=== PATIENT | male | born 1965 | race Caucasian/White ===

== ENCOUNTER 2024-03-30 14:35 | Outpatient (AMB) | payer MEDICARE, SELFPAY ==
--- NOTE | 2024-03-30 15:00 | A.OFFVIS_ITS ---
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 Has Hx of a vein stripping in the that has always had issues. Hx of [facility] wound Care center. 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 He has been seen by [facility] in the past, most recently, earlier this year. His last US was last winter, but he states it was a quick one. Complaints include pain over varicosities, swelling of lower extremities, and nonhealing ulcers. He is a very active person and it was not necessarily stop him from doing his normal physical activity. It is noted more so in left leg. Patient denies any previous venous surgery or injections. Patient denies any history of DVT/ PE. Patient denies any history of phlebitis. Trial of compression includes - elevation, especially at night in bed. Compression stockings; he is currently using 30-40 mmHg but has used 40-50mmHg in the past. They now present for vascular evaluation regarding their varicose veins. Review of Systems Const Reports as per HPI and Denies weakness ENT Reports Normal hearing present and Denies dizziness Card Reports as per HPI, Denies chest pain, Denies chest pain at rest, Denies chest pain with activity, Denies dyspnea and Denies dyspnea on exertion Resp Reports as per HPI, Denies cough, Denies dyspnea and Denies dyspnea on exertion GI Reports as per HPI, Denies abdominal pain, Denies nausea and Denies vomiting Musc Denies numbness Skin/Breast Reports as per HPI, Denies erythema and Denies wounds Neuro Reports Normal hearing present, Denies dizziness, Denies numbness, Denies Sensory deficit (Neuro) and Denies weakness Psych Reports no additional complaints Endo Reports no additional complaints Physical Exam Vital Signs: BMI result Body Mass Index 26.6 Const General: healthy appearing and no acute distress Orientation/consciousness: patient oriented x3 HEENT Head: Yes normal to inspection Ears: hearing grossly normal bilaterally Mouth: Normal oral and palatal mucosa present Resp Effort & Inspection: normal respiratory effort and able to speak in complete sentences Auscultation: clear to auscultation bilaterally Cardio Jugular venous distension: no JVD Rate: regular rate Rhythm: regular rhythm Heart sounds: S1 normal heart sound present and S2 normal heart sound present Bruits: no abdominal aortic bruits, no carotid bruits, no femoral bruits and no renal bruits Peripheral pulses: Peripheral pulses 2+ throughout GI Inspection: Yes normal to inspection Palpation (GI): No Abdominal aortic bruit present Skin General skin exam: no rashes or lesions noted Wounds: no wounds Hair: normal Neuro General: patient oriented x3 Cranial nerves: Yes Normal hearing present Cognition (Neuro): normal cognition Gait exam (Neuro): Normal gait present Motor exam (neuro): 5/5 motor strength present throughout Sensory Exam: No Sensory deficit (Neuro) Extrem Other: Left lower extremity: Discoloration noted with varying colors of deep red, violaceous, and hemosiderien staining from mid hernandez to the toes. Palpable DP pulses. Medial malleolus area - small ulceration noted, no bleeding, slight yellow/white weeping noted. Surrounding area very dry and sloughing skin. Right lower extremity: Discoloration noted, but not as significant his left lower extremity. More periods pale and light red discoloration. Palpable DP pulses. No wounds or ulcerations noted. CEAP: C - 6 E - primary A - superficial P - reflux General: Yes normal to inspection, Yes full ROM, Yes capillary refill normal and Yes normal gait Assessment & Plan Assessment & Plan (1) Varicose veins of both lower extremities with inflammation: Code(s): I83.11 - Varicose veins of right lower extremity with inflammation; I83.12 - Varicose veins of left lower extremity with inflammation Category: Medical Plan: Chuck is presenting today as a referral from his PCP for ongoing nonhealing venous ulcers as well as discoloration of his lower extremities. He is a very active person and is a nonsmoker. He wears compression stockings daily at a compression 30-40 mmHg but has gone up to 40-50 mmHg. He has been seen at [facility] vascular surgery as well as wound care and states he has not been getting any answers as to why this continues to happen. He states he has had an ultrasound before but does not think it has been a venous insufficiency one. He has been negative for DVTs in the past. In short, the patient has evidence of venous insufficiency. I have discussed the pathophysiology with the patient. In addition I have provided informational material regarding venous disease to the patient. We have discussed conservative measures including compression, elevation, and exercise. I have taken the liberty of ordering venous insufficiency testing with the patient. They will follow up with me after testing. The patient had an opportunity to ask questions regarding the treatment plan. All questions were answered. Imaging studies, laboratory studies and physical exam results were discussed and reviewed in detail. No major barriers to understanding were identified. The patient expressed understanding and agreement with the above treatment plan. The patient is aware they should contact our office by phone for worsening of the current condition or the appearance of new symptoms. Thank you for allowing me to participate in the vascular care of this patient. If you have any questions or concerns regarding the treatment for the above condition please do not hesitate to contact me. The office telephone contact is [phone]. This note is constructed using voice recognition software. While every effort has been made to ensure accuracy, railway yard assistant errors may have been included. Thank you for allowing me to participate in the care of your patient. Yours sincerely, GRAYSON Arteaga Orders: Orders US venous duplex LE BI 1 Week I83.11 - Varicose veins of right lower extremity with inflammation, I83.12 - Varicose veins of left lower extremity with inflammation Coding Level of Care Code New Pt Level 4 (09050) Diagnoses Varicose veins of both lower extremities with inflammation I83.11; I83.12
[2024-03-30 15:01] VITALS: BMI 26.6
== END 2024-03-30 15:43 | disposition home or self-care (01) ==
PROVIDERS: Visit Provider Physician Assistant Surgical
DX: I83.11 Varicose veins of right lower extremity with inflammation (principal); I83.12 Varicose veins of left lower extremity with inflammation
CPT/HCPCS: 99204

== ENCOUNTER → 2024-03-30 14:35 | Outpatient (BNVA) | payer MEDICARE, SELFPAY | PROVIDERS: Visit Provider Physician Assistant Surgical | DX: I83.11 Varicose veins of right lower extremity with inflammation (principal); I83.12 Varicose veins of left lower extremity with inflammation | CPT/HCPCS: 99202 ==

== ENCOUNTER 2024-05-06 08:13 | Outpatient (REF) | payer MEDICARE, SELFPAY ==
--- NOTE | ~2024-05-06 | US_ITS ---
EXAMINATION: US LOWER EXTREMITY VENOUS (REFLUX EXAM), BILATERAL CLINICAL INFORMATION: Varicose veins of right lower extremity with inflammation; history of prior vein stripping and VenoSeal procedures. COMPARISON: None. TECHNIQUE: Color flow triplex imaging and compression Doppler was performed to evaluate both the deep and the superficial systems bilaterally. To evaluate the superficial system, the examination was performed in the upright position. Color-flow Doppler ultrasound and compression ultrasound were utilized. In addition, maneuvers were utilized to demonstrate reflux. FINDINGS: 1. DEEP VENOUS ULTRASOUND OF THE RIGHT LOWER EXTREMITY: Common Femoral Vein: Compressible, normal respiratory variation and augmented flow. Femoral Vein: Compressible, normal color flow and augmentation. Popliteal Vein: Compressible, normal augmentation. Deep Reflux: There is hemodynamically significant reflux within the right femoral and popliteal veins segments. There is no evidence of a Tyler's cyst. 2. SUPERFICIAL ULTRASOUND WITH DOPPLER OF RIGHT LOWER EXTREMITY: GREAT SAPHENOUS VEIN: Saphenofemoral Junction: Not seen Proximal Thigh: Not seen Mid Thigh: Possibly thrombosed Distal Thigh: Not seen At Knee: Not seen Proximal Calf: Not seen Mid Calf: 0.1 cm; Reflux: 2188 ms Distal Calf: 0.2 cm; Reflux: 0 ms DUPLICATED MEDIAL GREAT SAPHENOUS VEIN: Diameter: None imaged Reflux: NA DUPLICATED LATERAL GREAT SAPHENOUS VEIN: Diameter: None imaged Reflux: NA SMALL SAPHENOUS VEIN: Saphenopopliteal Junction: 0.3 cm; Reflux: 0 ms Proximal: 0.2 cm; Reflux: 0 ms Distal: 0.2 cm; Reflux: 0 ms VEIN OF GIACOMINI: Size: NA Reflux: NA PERFORATORS: Location: Mid calf Size: 0.1 Reflux: 0 ms VARICOSITIES: Location: None imaged. Size: NA Reflux: NA 3. DEEP VENOUS ULTRASOUND OF THE LEFT LOWER EXTREMITY: Common Femoral Vein: Compressible, normal respiratory variation and augmented flow. Femoral Vein: Compressible, normal color flow and augmentation. Popliteal Vein: Compressible, normal augmentation. Deep Reflux: There is hemodynamically significant reflux within the left femoral and popliteal veins segments. There is no evidence of a Tyler's cyst. 4. SUPERFICIAL ULTRASOUND WITH DOPPLER OF LEFT LOWER EXTREMITY: GREAT SAPHENOUS VEIN: Saphenofemoral Junction: Not seen Proximal Thigh: Not seen Mid Thigh: Possibly thrombosed Distal Thigh: Not seen At Knee: Not seen Proximal Calf: 0.1 cm; noncompressible Mid Calf: 0.1 cm; partially compressible Distal Calf: Not seen DUPLICATED MEDIAL GREAT SAPHENOUS VEIN: Diameter: None imaged Reflux: NA DUPLICATED LATERAL GREAT SAPHENOUS VEIN: Diameter: None imaged. Reflux: NA SMALL SAPHENOUS VEIN: Saphenopopliteal Junction: 0.04 cm; Reflux: 0 ms Proximal: 0.1 cm; Reflux: 0 ms Distal: 0.2 cm; Reflux: 0 ms VEIN OF GIACOMINI: Size: NA Reflux: NA PERFORATORS: Location: Mid short saphenous vein Size: 0.3 cm Reflux: 0 ms Location: Distal short saphenous vein Size: 0.3 cm Reflux: 0 ms Location: Proximal calf Size: 0.1 cm Reflux: 0 ms VARICOSITIES: Location: None Imaged Size: NA Reflux: NA US/US venous duplex LE BI IMPRESSION: Right: There has been a prior right greater saphenous vein ablation. There is hemodynamically significant reflux of the residual right greater saphenous vein at the level of the mid calf. There is hemodynamically significant reflux within the right deep venous system, as detailed. Left: There has been a prior left greater saphenous vein ablation. No hemodynamically significant reflux is seen within the left lower extremity superficial venous system. There is hemodynamically significant reflux within the left deep venous system, as detailed. Electronically signed by: Dixon Lugo MD 06/09/2024 05:13 PM SATYA
== END 2024-05-06 08:14 | disposition home or self-care (01) ==
LOC: HO.US 08:13
PROVIDERS: PCP Internal Medicine; Visit Provider Physician Assistant Surgical
DX: I83.11 Varicose veins of right lower extremity with inflammation (principal); I83.12 Varicose veins of left lower extremity with inflammation
CPT/HCPCS: 93970

== ENCOUNTER 2024-05-18 14:05 | Outpatient (AMB) | payer MEDICARE, SELFPAY ==
--- NOTE | 2024-05-18 14:09 | MHC.OFFVIS ---
Vital Signs 05/18/24 14:10 Height 5 ft 9 in Weight 180 lb BMI 26.6 Intake Visit Reasons: Follow Up 05/06 US Intake Note: follow up US 05/06/24 for Left LE wound hes had since his 20s, hx of vein stripping in the 1980s. Accompanied by: Self / Same As Patient Allergies No Known Allergies Allergy (Verified 05/18/24 14:13) HPI HPI Follow Up 05/06 US: Details: Very pleasant 59-year-old gentleman presents for evaluation regarding nonhealing left lower extremity ulcer. This originally began back at the age of 16. He reports some sort of complex fracture of the lower extremity. From his mid 20s he has developed nonhealing ulcers on and off throughout his life. He has been seen by multiple wound care centers and actually has had multiple venous ablation and strippings done in the past. He has this nonhealing left medial ankle ulcer. Now presents to us for evaluation and treatment. Review of Systems Const All systems reviewed & are unremarkable except as noted in HPI and below Reports no additional complaints ENT Reports Normal hearing present Card Denies chest pain, Denies chest pain at rest, Denies chest pain with activity and Denies pedal edema Resp Denies cough GI Denies abdominal pain Musc Denies abnormal gait, Denies muscle cramps and Denies radiating pain into limb Skin/Breast Denies skin ulcer and Denies wounds Neuro Reports Normal hearing present and Denies abnormal gait Psych Reports no additional complaints Physical Exam Vital Signs: BMI result Body Mass Index 26.6 Const General: cooperative, healthy appearing and comfortable Orientation/consciousness: oriented to person, oriented to place and oriented to time HEENT Head: Yes normal to inspection Neck Neck: Yes normal visual inspection Carotids: no bruits Chest Chest palpation & inspection: normal inspection of the chest Resp Effort & Inspection: normal respiratory effort and able to speak in complete sentences Auscultation: clear to auscultation bilaterally, no crackles, no rales, no rhonchi and no wheezes Cardio Other: Bilateral palpable dorsalis pedis pulses Rate: regular rate Rhythm: regular rhythm Heart sounds: S1 normal heart sound present and S2 normal heart sound present Bruits: no carotid bruits Peripheral pulses: Peripheral pulses 2+ throughout GI Inspection: Yes normal to inspection Skin Other: Left medial ankle a proximally a 2 cm generalized opening and excoriated area. There is generalized skin discoloration. CEAP Class - C6 Wounds: no wounds Hair: normal Neuro General: oriented to person, oriented to place and oriented to time Cranial nerves: Yes CN's II-XII intact bilaterally and Yes Normal hearing present Cognition (Neuro): normal cognition Motor exam (neuro): 5/5 motor strength present throughout Extrem Other: venous exam: No significant superficial varicosities or spider telangiectasias, minimal edema General: No clubbing, No cyanosis and No edema Psych Appearance: grossly normal Mental Status: mental status grossly normal Speech and movement: Normal speech and movement present Assessment & Plan Assessment & Plan (1) Nonhealing ulcer of left lower extremity: Code(s): L97.929 - Non-pressure chronic ulcer of unspecified part of left lower leg with unspecified severity Category: Medical Qualifiers: Non-pressure ulcer stage: unspecified non-pressure ulcer stage Qualified Code(s): L97.929 - Non-pressure chronic ulcer of unspecified part of left lower leg with unspecified severity Plan: In short patient has a nonhealing left lower extremity ulcer. This has been chronic in nature and it is unfortunate that he has been unable to heal this. From a vascular perspective it appears that he has palpable arterial pulses and venous testing performed on May 06 is negative for any significant reflux. I have taken the liberty of ordering a CT scan of that left lower extremity to ensure that there is no foreign body or underlying hardware. We have discussed conservative wound care issues including compressive wraps and dressings. He will follow up with us after testing. Thank you for allowing us to participate in his care. (2) Varicose veins of both lower extremities with inflammation: Code(s): I83.11 - Varicose veins of right lower extremity with inflammation; I83.12 - Varicose veins of left lower extremity with inflammation Category: Medical Plan: Appears to have had prior venous ablation is and stripping. No additional venous reflux identified. Thank you for allowing us to assist in his care Orders: Orders CT lower leg LT wo IV con Today L97.929 - Non-pressure chronic ulcer of unspecified part of left lower leg with unspecified severity Coding Level of Care Code Est Pt Level 4 (85792) Complex EM visit Add On G2211 Diagnoses Non-healing ulcer of lower extremity, left, with unspecified severity L97.929 Non-pressure ulcer stage: unspecified non-pressure ulcer stage Varicose veins of both lower extremities with inflammation I83.11; I83.12
[2024-05-18 14:10] VITALS: BMI 26.6
== END 2024-05-18 14:43 | disposition home or self-care (01) ==
PROVIDERS: PCP Internal Medicine; Visit Provider Surgery Vascular Surgery
DX: L97.929 Non-pressure chronic ulcer of unspecified part of left lower leg with unspecified severity (principal); I83.11 Varicose veins of right lower extremity with inflammation; I83.12 Varicose veins of left lower extremity with inflammation
CPT/HCPCS: 99214; G2211

== ENCOUNTER → 2024-05-18 14:05 | Outpatient (BNVA) | payer MEDICARE, SELFPAY | PROVIDERS: PCP Internal Medicine; Visit Provider Surgery Vascular Surgery | DX: I83.228 Varicose veins of left lower extremity with both ulcer of other part of lower extremity and inflammation (principal); L97.829 Non-pressure chronic ulcer of other part of left lower leg with unspecified severity; I83.11 Varicose veins of right lower extremity with inflammation | CPT/HCPCS: 99212 ==

== ENCOUNTER 2024-06-21 11:06 | Outpatient (REF) | payer OTHER, SELFPAY | END 2024-06-21 11:07 | disposition home or self-care (01) | LOC: HO.CT 11:06 | PROVIDERS: PCP Internal Medicine; Visit Provider Surgery Vascular Surgery | DX: L97.929 Non-pressure chronic ulcer of unspecified part of left lower leg with unspecified severity (principal) | CPT/HCPCS: 73700 ==

== ENCOUNTER → 2024-06-21 11:08 | Outpatient (BNV) | payer OTHER, SELFPAY | PROVIDERS: PCP Internal Medicine; Visit Provider Radiology Diagnostic Radiology | DX: L97.929 Non-pressure chronic ulcer of unspecified part of left lower leg with unspecified severity (principal) | CPT/HCPCS: 73700 ==

== ENCOUNTER 2024-07-01 14:20 | Outpatient (AMB) | payer OTHER, SELFPAY ==
[2024-07-01 14:25] VITALS: BMI 26.6
--- NOTE | 2024-07-01 14:25 | MHC.OFFVIS ---
Vital Signs 07/01/24 14:25 Height 5 ft 9 in Weight 180 lb BMI 26.6 Intake Visit Reasons: follow up CT LE 06/21/23 Intake Note: follow up CT Left LE 06/21/24, for non-healing wound on the ankle. President & Founder Required: No Accompanied by: Self / Same As Patient Allergies No Known Allergies Allergy (Verified 07/01/24 14:29) HPI HPI follow up CT LE 06/21/23: Details: Chuck is presenting today as a follow up to CT scan of the left lower leg, performed on 06/21/2024. He has had any lengthy history, since his teenage years, after an accident that occurred: He states began having these ulcers that continually occur on his left lower ankle area. He has seen multiple specialties for this as well as wound care, but they continue to reemerge. He states currently the site has scabbed over and there was no openings, bleeding, or any drainage. Review of Systems Const Reports as per HPI and Denies weakness ENT Reports Normal hearing present and Denies dizziness Card Reports as per HPI, Denies chest pain, Denies chest pain at rest, Denies chest pain with activity, Denies dyspnea and Denies dyspnea on exertion Resp Reports as per HPI, Denies cough, Denies dyspnea and Denies dyspnea on exertion GI Reports as per HPI, Denies abdominal pain, Denies nausea and Denies vomiting Musc Denies numbness Skin/Breast Reports as per HPI, Denies erythema and Denies wounds Neuro Reports Normal hearing present, Denies dizziness, Denies numbness, Denies Sensory deficit (Neuro) and Denies weakness Psych Reports no additional complaints Endo Reports no additional complaints Physical Exam Vital Signs: BMI result Body Mass Index 26.6 Const General: healthy appearing and no acute distress Orientation/consciousness: patient oriented x3 HEENT Head: Yes normal to inspection Ears: hearing grossly normal bilaterally Mouth: Normal oral and palatal mucosa present Resp Effort & Inspection: normal respiratory effort and able to speak in complete sentences Auscultation: clear to auscultation bilaterally Cardio Jugular venous distension: no JVD Rate: regular rate Rhythm: regular rhythm Heart sounds: S1 normal heart sound present and S2 normal heart sound present Bruits: no abdominal aortic bruits, no carotid bruits, no femoral bruits and no renal bruits Peripheral pulses: Peripheral pulses 2+ throughout GI Inspection: Yes normal to inspection Palpation (GI): No Abdominal aortic bruit present Skin General skin exam: no rashes or lesions noted Wounds: no wounds Hair: normal Neuro General: patient oriented x3 Cranial nerves: Yes Normal hearing present Cognition (Neuro): normal cognition Gait exam (Neuro): Normal gait present Motor exam (neuro): 5/5 motor strength present throughout Sensory Exam: No Sensory deficit (Neuro) Extrem Other: Left medial ankle: Site is all scabbed over with no bleeding or discharge noted. No pain to palpation. No other wounds or open areas. General: Yes normal to inspection, Yes full ROM, Yes capillary refill normal and Yes normal gait Results Reviewed Results Reviewed: CT of left lower leg without contrast: 1. Subtle 9 mm ulceration left posterior medial ankle. No associated foreign body or soft tissue gas. There is soft tissue swelling and edema surrounding the medial and posterior ankle, and minimally extending approximately intermediate up the left leg. 2. There is no acute bony abnormality or CT evidence of osteomyelitis. 3. Old screw tract just deep to the tibial tubercle. No hardware evident. Mild degenerative changes changes in the tibiotalar joint, and moderate changes in the knee joint. 4. Surgical clips seen in the medial left lower leg, likely from prior vascular procedure Assessment & Plan Assessment & Plan (1) Nonhealing ulcer of left lower extremity: Code(s): L97.929 - Non-pressure chronic ulcer of unspecified part of left lower leg with unspecified severity Category: Medical Qualifiers: Non-pressure ulcer stage: unspecified non-pressure ulcer stage Qualified Code(s): L97.929 - Non-pressure chronic ulcer of unspecified part of left lower leg with unspecified severity Plan: Chuck is presenting today as a follow up to CT of the left lower extremity, performed on 06/21/2024. He requested one due to a nonhealing ulcer of his left ankle. He states the ulcer has now healed over. He states this has happened multiple times over the course of his life since his 20s. He does continue to apply Aquaphor/Vaseline and wears his compression stockings daily. He elevates his legs whenever he can do so. We discussed that at this point we will not need to see him unless anything changes or the wound opens back up again. We discussed continuing with compression stockings, elevation, and physical activity. We discussed the importance of a well-balanced diet. Thank you for allowing us to participate in the patient's care. If there are any questions or concerns, please do not hesitate to reach out to us. Coding Level of Care Code Est Pt Level 4 (68971) Diagnoses Non-healing ulcer of lower extremity, left, with unspecified severity L97.929 Non-pressure ulcer stage: unspecified non-pressure ulcer stage Comment Review of lower extremity CT
--- OUTSIDE RECORDS SUMMARY | 2024-07-01 15:35 | XMS_ITS | Clinical Summary ---
Author Organization [employer] Address [address] [facility] 7t [place] [address] Care Team Providers Care Plastic Surgeon Name Role Phone Unavailable Primary Care Provider Unavailabl e Allergies No known active allergies Medications Adderall XR 30 MG 24 hr capsule Take 30 mg by mouth 2 times daily. 06/17/2022 Active atorvastatin (Lipitor) 10 MG tablet Take 10 mg by mouth at bedtime. 05/26/2022 Active lamoTRIgine (LaMICtal) 200 MG tablet Take 2 tablets by mouth in the morning. 04/30/2022 Active Latuda 120 MG tablet TAKE 1 TABLET BY MOUTH IN THE EVENING WITH MEALS 06/03/2022 Active Active Problems No known active problems Social History Tobacco Use Types Packs/Day Years Used Date Smoking Tobacco: Never Smokeless Tobacco: Never Tobacco Cessation:Counseling Given: Not Answered Sex and Gender Information Value Date Recorded Sex Assigned at Male 03/11/2022 10:23 AM EDT Legal Sex Male 10:23 AM EDT Gender Identity Choose not to disclose 10:23 AM EDT Sexual Orientation Choose not to disclose 2021 10:23 AM EDT Last Filed Vital Signs Vital Sign Reading Time Taken Comments Blood Pressure 120/69 07/10/2022 8:13 AM EST Pulse 108 07/10/2022 8:13 AM EST Temperature - - Respiratory Rate - - Oxygen Saturation - - Inhaled Oxygen Concentration - - Weight - - Height - - Body Mass Index - - Plan of Treatment Health Maintenance Due Date Last Done Comments CT Colonography 1963 Colonoscopy 1963 Colorectal Cancer Screening 1963 Dental X-Ray: Bitewings 1963 Depression Screening 1963 FIT DNA/Cologuard 1963 FIT 1963 FOBT 1963 HIV Screening 1963 Lipid Panel 1963 SDOH Screening 1963 Sigmoidoscopy 1963 Alcohol/Substance Use Screening 1975 Hepatitis C Screening 1981 DTaP/Tdap/Td Vaccines (1 - Tdap) 1982 Pneumococcal Vaccine: 50+ Years (1 of 1 - PCV) 2013 Dental Oral Exam 01/11/2023 07/10/2022 Dental Prophylaxis 01/11/2023 07/10/2022 RSV Patients and Patients Aged 60 years or older (1 - Risk 60-74 years 1-dose series) 2023 COVID-19 Vaccine ( season) 2024 02/13/2022, 04/11/2021, 08/15/2020, Additional history exists Influenza Vaccine (#1) 2024 , 02/26/2021, 01/10/2020, Additional history exists Tobacco Screening 05/21/2024 05/21/2023 Dental X-Ray: Full Mouth 08/13/2025 08/12/2022 Zoster Vaccines Completed 02/04/2022, 06/15/2021 HIB Vaccines Aged Out No longer eligi ble based on patient's age to complete this topic HPV Vaccines Aged Out No longer eligi ble based on patient's age to complete this topic Hepatitis A Vaccines Aged Out No long er eligible based on patient's age to complete this topic Hepatitis B Vaccines Aged Out No long er eligible based on patient's age to complete this topic IPV Vaccines Aged Out No longer eligi ble based on patient's age to complete this topic Meningococcal Vaccine Aged Out No ann maryann eligible based on patient's age to complete this topic Pneumococcal Vaccine: Pediatrics (0 to 5 Years) and At-Risk Patients (6 to 49) Years) Aged Out No longer eligible based on patient's age to complete this topic RSV under 20 months Aged Out No longe r eligible based on patient's age to complete this topic Rotavirus Vaccines Aged Out No longer eligible based on patient's age to complete this topic Procedures Procedure Name Priority Date/Time Associated Diagnosis Comments PANORAMIC RADIOGRAPHIC IMAGE Routine 08/12/2022 2:00 PM EDT PERIODIC ORAL EVALUATION - ESTABLISHED PATIENT Routine 07/10/2022 8:30 AM EST PROPHYLAXIS - ADULT Routine 07/10/2022 8 :00 AM EST Encounter for dental examination from Last 3 Months or Most Recently Relevant to Health Maintenance Insurance DENTAL - [facility]
--- OUTSIDE RECORDS SUMMARY | 2024-07-01 15:35 | XMS_ITS | Clinical Summary ---
Author Organization [facility], Address [address] [place] [address] [place] [address] Phone Care Team Providers Care Ampoule Washing Machine Operator Name Role Phone Jonhie Gallardo MD Primary Care Provider [phone]- [phone] Allergies Active Allergy Reactions Criticality Noted Date Comments Nsaids 09/09/2019 Medications amantadine (SYMMETREL) 100 MG capsule Take 100 mg by mouth 2 (two) times a day Active amphetamine-dex troamphetamine XR (ADDERALL XR) 30 MG 24 hr capsule Take 60 mg by mouth 1 (one) time each day in the morning Active lamoTRIgine (LaMICtal) 200 MG tablet Take 200 mg by mouth twice a day Active lithium (ESKALITH) 450 MG CR tablet Take 450 mg by mouth 1 (one) time each day 1 Active clindamycin (CLEOCIN T) 1 % external solution APPLY TOPICALLY TO AFFECTED AREA EVERY DAY 0 Active Lurasidone HCl 120 MG tablet Take by mouth Ac tive lamoTRIgine (LaMICtal) 100 MG tablet Lamictal Active atorvastatin (LIPITOR) 10 MG tablet Take 1 tablet (10 mg total) by mouth 1 (one) time each day in the evening 90 tablet 3 4 Active Active Problems Problem Noted Date Diagnosed Date Hypertensive disorder 09/11/2022 Chronic kidney disease, stage 3 (moderate) 09/08 Venous insufficiency Venous hypertension Overview (09/09/2019): with ulcer Serum creatinine above reference range Hyperlipidemia Resolved Problems Problem Noted Date Diagnosed Date Resolved Date Basal cell carcinoma of skin in situ 07/15/2019 10/02/2020 Overview (10/02/2020): Right anabaptism - Imiquimod 07/2019 Immunizations Name Administration Dates Next Due Influenza, Quadrivalent, Preservative Free 02/19,02/19/2019 Family History Medical History Relation Comments Cancer Mother Lung cancer Mother Relation Status Comments Mother Social History Tobacco Use Types Packs/Day Years Used Date Smoking Tobacco: Former Cigarettes 0 05/12/1996 - 05/12/2006 Smokeless Tobacco: Never Alcohol Use Standard Drinks/Week Comments Not Currently 0 (1 standard drink = 0.6 oz pur e alcohol) Sex and Gender Information Value Date Recorded Sex Assigned at Not on file Legal Sex Male 4:32 PM EST Gender Identity Not on file Sexual Orientation Not on file Last Filed Vital Signs Vital Sign Reading Time Taken Comments Blood Pressure 110/70 09/14/2018 12:00 PM EDT Pulse - - Temperature - - Respiratory Rate - - Oxygen Saturation - - Inhaled Oxygen Concentration - - Weight 81.6 kg (180 lb) 09/13/2019 1:34 PM EDT Height 172.7 cm (5' 8 ) 09/14/2018 12:00 PM EDT Body Mass Index 27.37 09/14/2018 12:00 PM EDT Plan of Treatment Health Maintenance Due Date Last Done Comments Pneumococcal Vaccine: Pediatrics (0 to 5 Years) and At-Risk Patients (6 to 64 Years) (1 of 2 - PCV) 1969 Colorectal Cancer Screening: Annual FOBT 02/25/2012 Colorectal Cancer Screening: Colonoscopy 02/25/2012 Colorectal Cancer Screening: Sigmoidoscopy 02/25/2012 Influenza Vaccine (#1) 2024 9, 02/19/2019 Hepatitis B Vaccine Aged Out No longe r eligible based on patient's age to complete this topic Insurance [facility] CARE DUAL SNP ([id number]) [place] [id number] Care Teams Ampoule Washing Machine Operator Relationship Specialty Start Date End Date Johnie Gallardo MD [facility] [address] [place] [address] [address] [place], [place] PCP - General 03/16/19
--- OUTSIDE RECORDS SUMMARY | 2024-07-01 15:35 | XMS_ITS | Encounter Summary ---
Author Organization [facility] Address [address] [place] [address] Care Team Providers Care Websphere Portal Architect Name Role Phone Johnie Gallardo MD Primary Care Provider Liliana roberto carlosilable Basilia [place] PA-C Unavailable [phone] Encounter Details Date Type Department Care Team Description 03/04/2024 Orders Only [facility] Lung Screening Program [place] [address] [facility] [address] [place] [phone] Ila Patterson MD 299 [facility] [address] [place] [address] History of tobacco use, presenting hazards to health Social History Tobacco Use Types Packs/Day Years Used Date Smoking Tobacco: Former Cigarettes Q uit: 2013 Smokeless Tobacco: Never Comments:03/03/24: Former sm oker, started at age 16, smoked 1PPD until 10 years ago (2013). HAYES: 31. Sex Assigned at Date Recorded Not on file documented as of this encounter Plan of Treatment Not on file documented as of this encounter Procedures Procedure Name Priority Date/Time Associated Diagnosis Comments CT LOW DOSE LUNG SCREEN ANNUAL Routine 03/03/2024 History of tobacco use, presenting hazards to health documented in this encounter Results * CT LOW DOSE LUNG SCREEN ANNUAL (03/03/2024) Ila Patterson MD CT SCANS documented in this encounter Visit Diagnoses Diagnosis History of tobacco use, presenting hazards to health Personal history of tobacco use, presenting hazards to health documented in this encounter Care Teams Websphere Portal Architect Relationship Specialty Start Date End Date Johnie Gallardo MD PCP - General Internal Medicine 05/17/19 Basilia [place] PA-C [address] [address] Thoracic Surgery 03/03/24 07/05/1996 documented as of this encounter
--- OUTSIDE RECORDS SUMMARY | 2024-07-01 15:35 | XMS_ITS | Encounter Summary ---
Author Organization [facility] Address [address] [place] [address] Care Team Providers Care Product Support Representative Name Role Phone Johnie Gallardo MD Primary Care Provider [phone] Reason for Visit * Reason Onset Date Comments Special Procedure 06/09/2024 Encounter Details Date Type Department Care Team (Late st Contact Info) Description 06/09/2024 Telephone Gastroenterology - [place] [address] [place] [phone] Bg Lafleur DO [address] [place] [address] Special Procedure Social History Tobacco Use Types Packs/Day Years Used Date Smoking Tobacco: Former Cigarettes Q uit: 05/12/2013 Smokeless Tobacco: Never Sex and Gender Information Value Date Recorded Sex Assigned at Not on file Legal Sex Male 7:40 AM EST Gender Identity Not on file Sexual Orientation Not on file documented as of this encounter Progress Notes * Radha Watkins MA - 06/09/2024 2:26 PM EST Rescheduled. * Radha Ford - 06/09/2024 2:02 PM EST Patient's calling to reschedule colonoscopy with Dr Lafleur due to having rotator cuff surgery 2/, call back # [phone]. documented in this encounter Plan of Treatment Upcoming Encounters Date Type Department Care Team (Late st Contact Info) Description 08/30/2024 8:30 AM EDT Appointment [facility] Endoscopy [address] [place] [address] Nixno Sparrow MD [address] [facility] [address] [place] [address] documented as of this encounter Visit Diagnoses Not on filedocumented in this encounter Care Teams Product Support Representative Relationship Specialty Start Date End Date Johnie Gallardo MD [address] [place] [address] [address] [place], [place] PCP - General Internal Medicine 05/17/19 documented as of this encounter
--- OUTSIDE RECORDS SUMMARY | 2024-07-01 15:35 | XMS_ITS | Clinical Summary ---
Author Organization [facility] Address [address] [place] [address] Phone Care Team Providers Care Welder Apprentice Combination Name Role Phone Johnie Gallardo MD Primary Care Provider [phone]- [phone] Medications polyethylene glycol (Golytely) 236-22.74-6.74 -5.86 gram solution Take 4L by mouth once for one dose. May substitue any PEG. Starting at 6PM the night before your procedure drink 1 8oz glasses at your own pace until you complete half of the gallon. Finish 2nd half of the gallon 5 hours before your procedure. 4000 mL 5 Active bisacodyL (DULCOLAX) 5 mg EC tablet Take 2 tablets by mouth right before beginning bowel prep. See instructions provided by the office 2 tablet 5 Active Encounters Date Type Department Care Team Description 06/09/2024 Telephone Gastroenterology - [place] 175 [facility] 175 [facility] [address] [place] [address] Bg Lafleur DO Special Procedure from Last 3 Months Family History Medical History Relation Name Comments Lung cancer Mother Relation Name Status Comments Mother Social History Tobacco Use Types Packs/Day Years Used Date Smoking Tobacco: Former Cigarettes Q uit: 05/12/2013 Smokeless Tobacco: Never Sex and Gender Information Value Date Recorded Sex Assigned at Not on file Legal Sex Male 7:40 AM EST Gender Identity Not on file Sexual Orientation Not on file Obstetrics History Plan of Treatment Upcoming Encounters Date Type Department Care Team ([facility] [place] st Contact Info) Description 08/30/2024 8:30 AM EDT Appointment [facility] Endoscopy [address] [place] [address] Nixon Sparrow MD 299 [facility] [address] [place] [address] Health Maintenance Due Date Last Done Comments COVID-19 Vaccine (#1) 02/25/1968 DTaP,Tdap,and Td Vaccines (1 - Tdap) 1982 Pneumococcal Vaccine: 50+ Ye ars (1 of 2 - PCV) 1982 Pneumococcal Vaccine: Pediat rics (0 to 5 Years) and At-Risk Patients (6 to 64 Years) (1 of 2 - PCV) 1982 Zoster Vaccines (1 of 2) 1982 Cholesterol Screening (Lipid Panel) 04/20/2022 Colorectal Cancer Screening: Colonoscopy 04/20/2022 Depression Screening 04/20/2022 HIV Screening 04/20/2022 Hepatitis C Screening 04/20/2022 Social Influencers of Health Screening 04/20/2022 Influenza Vaccine (#1) 2024 RSV Immunization Patients 60 + Years Old (1 - 1-dose 75+ series) 2038 HIB Vaccines Aged Out No longer eligi [...] on patient's age to complete this topic MMR Vaccines Aged Out No longer eligi ble based on patient's age to complete this topic Meningococcal ACWY Vaccine Aged Out N o longer eligible based on patient's age to complete this topic Meningococcal B Vacine Aged Out No lo nger eligible based on patient's age to complete this topic RSV Immunization Patients Un francesca 20 months Aged Out No longer eligible b ased on patient's age to complete this topic Varicella Vaccines Aged Out No longer eligible based on patient's age to complete this topic Insurance [facility] Member Subscriber Plan / Payer (Ef fective 2024-Present) Name:Chuck Erickson Braden Member ID:[id number] Relation to Subscriber:Self Name:Chuck Erickson Subscriber ID:[id number] Payer ID:[id number] Group ID:Not on file Type:Not on file Address: [place] [address] [place] [phone] Care Teams Welder Apprentice Combination Relationship Specialty Start Date End Date Johnie Gallardo MD [address] [facility] [address] [place] PCP - General Internal Medicine 05/17/19
--- OUTSIDE RECORDS SUMMARY | 2024-07-01 15:35 | XMS_ITS | Encounter Summary ---
Author Organization [employer] Address [address] [facility] 7t [place] [address] Care Team Providers Care Drafting Engineer Name Role Phone Unavailable Primary Care Provider Unavailabl e Reason for Visit * Reason Onset Date Comments Prior Authorization 11/08/2022 Encounter Details Date Type Department Care Team (Late st Contact Info) Description 11/08/2022 Telephone [facility] D[facility]AL [address] [place], [place] [id number] Darryn Jarvis BDS [address] [place], [place] [phone] Prior Authorization Social History Tobacco Use Types Packs/Day Years Used Date Smoking Tobacco: Never Smokeless Tobacco: Never Sex and Gender Information Value Date Recorded Sex Assigned at Male 03/11/2022 10:23 AM EDT Legal Sex Male 10:23 AM EDT Gender Identity Choose not to disclose 10:23 AM EDT Sexual Orientation Choose not to disclose 2021 10:23 AM EDT documented as of this encounter Miscellaneous Notes * Telephone Encounter - Angela Barrett - 11/08/2022 1:21 PM EDT Lis from [facility] called stating that she has been trying to get a PA submission for the Partial that is tx planned for patient and has left several messages and has not heard back or has not had anything submitted. She provided her phone number to reach out to as well as Fax number for PA to be submitted. Kanchan Hays DR documented in this encounter Plan of Treatment Not on file documented as of this encounter Visit Diagnoses Not on filedocumented in this encounter
--- OUTSIDE RECORDS SUMMARY | 2024-07-01 15:35 | XMS_ITS | Encounter Summary ---
Author Organization [employer] Address [address] [facility] [address] [place] [address] Care Team Providers Care Powder Mill Operator Name Role Phone Unavailable Primary Care Provider Unavailabl e Encounter Details Date Type Department Care Team (Latest Contact Info) Description 12/03/2021 Abstract C CONVERSIONS Dental, Provider, DDS Social History Tobacco Use Types Packs/Day Years Used Date Smoking Tobacco: Never Assessed Sex and Gender Information Value Date Recorded Sex Assigned at Male 03/11/2022 10:23 AM EDT Legal Sex Male 10:23 AM EDT Gender Identity Choose not to disclose 2 10:23 AM EDT Sexual Orientation Choose not to disclose 2021 10:23 AM EDT documented as of this encounter Plan of Treatment Not on file documented as of this encounter Visit Diagnoses Not on filedocumented in this encounter
--- OUTSIDE RECORDS SUMMARY | 2024-07-01 15:35 | XMS_ITS | Encounter Summary ---
Author Organization [facility], Address [address] [place] [address] Phone Care Team Providers Care Supply Chain Program Manager Name Role Phone Johnie Gallardo MD Primary Care Provider [phone] Encounter Details Date Type Department Care Team (Late st Contact Info) Description 09/20/2019 Orders Only [facility] - [place] [address] [place] [phone] Dirk Barroso MD [address] [place] [address] [place] [phone] Chronic kidney disease, stage 3 (moderate) (HCC); Venous hypertension; Mixed hyperlipidemia Social History Tobacco Use Types Packs/Day Years Used Date Smoking Tobacco: Former Cigarettes Sex and Gender Information Value Date Recorded Sex Assigned at Not on file Legal Sex Male 4:32 PM EST Gender Identity Not on file Sexual Orientation Not on file documented as of this encounter Plan of Treatment Not on file documented as of this encounter Procedures Procedure Name Priority Date/Time Associated Diagnosis Comments URINE PROTEIN, 24 HOUR W/O CREATININE Routine 10/28/2019 6:00 AM EDT Chronic kidney disease, stage 3 (moderate) (HCC) Venous hypertension Mixed hyperlipidemia PROTEIN / CREATININE RATIO, URINE 09/28/2019 10:01 AM EDT documented in this encounter Results * Urine Protein, 24 hour w/o Creatinine (10/28/2019 6:00 AM EDT) Protein, Ur 6 (0-12) MG/DL [facility] 24 Hr Total Protein 0.14 (0.04-0.23) GM/24HR [facility] Comment: Testing performed or reported by [facility], a Service of [address] [address] Donna Huitron MD, Natural Resources Manager Urine (Urine, Clean Catch) 10/28/2019 6:00 AM EDT 10/28/2019 2:52 PM EDT Dirk Barroso MD LAB URINE ORDERABLES Final Res ult Performing Organization Address [facility] de Phone Number [facility] * (ABNORMAL) Protein, Total, Random Urine w/Creatinine (Protein/Creat Ratio) (09/28/2019 10:01 AM EDT) Protein/Creati ne Ratio 0.83(H) (0-0.2) [facility] Protein, Urine 16 MG/DL [facility] Creatinine, Urine 19.2 MG/DL [facility] Comment: Testing performed or reported by [facility], a Service of [facility], [address] [place] [address] Donna Huitron MD, Natural Resources Manager 09/28/2019 10:0 1 AM EDT 09/28/2019 10:22 AM EDT Result [facility] Dirk Barroso MD LAB URINE ORDERABLES Final Res ult Performing Organization Address [facility] de Phone Number [facility] documented in this encounter Visit Diagnoses Diagnosis Chronic kidney disease, stage 3 (moderate) Venous hypertension Mixed hyperlipidemia documented in this encounter Care Teams Supply Chain Program Manager Relationship Specialty Start Date End Date Johnie Gallardo MD [facility] [address] [place] [address] [address] [place], [place] PCP - General 03/16/19 documented as of this encounter
--- OUTSIDE RECORDS SUMMARY | 2024-07-01 15:35 | XMS_ITS | Encounter Summary ---
Author Organization [employer] Address [address] [facility] [address] [place] [address] Care Team Providers Care Stapler Hand Name Role Phone Unavailable Primary Care Provider Unavailabl e Encounter Details Date Type Department Care Team (Latest Contact Info) Description 10/08/2018 Abstract [facility] CONVERSIONS Dental, Provider, DDS Social History Tobacco [...]
--- OUTSIDE RECORDS SUMMARY | 2024-07-01 15:35 | XMS_ITS | Encounter Summary ---
Author Organization [facility] Address [address] [place] [address] Phone Care Team Providers Care Equipment Maint Tech Name Role Phone Johnie Gallardo MD Primary Care Provider [phone]- [phone] Encounter Details Date Type Department Care Team (Late st Contact Info) Description 09/11/2022 Documentation Only [facility], [address] [place] [phone] Teo Cronin MD [address] [place] [phone] Social History Tobacco Use Types Packs/Day Years [...] on filedocumented in this encounter Care Teams Equipment Maint Tech Relationship Specialty Start Date End Date Johnie Gallardo MD [facility] [address] [place], [place] PCP - General 03/16/19 documented as of this encounter
--- OUTSIDE RECORDS SUMMARY | 2024-07-01 15:35 | XMS_ITS | Encounter Summary ---
Author Organization [facility] Address [address] [place] [address] Care Team Providers Care Cuffing Machine Operator Name Role Phone Johnie Gallardo MD Primary Care Provider Liliana vailable Basilia [place] PA-C Unavailable [phone] Encounter Details Date Type Department Care Team Description 03/04/2024 Manager Graphic Report Medical Records [address] [place] [address] Johnie Gallardo MD Social History Tobacco Use Types Packs/Day Years Used Date Smoking Tobacco: Former Cigarettes Q uit: 2014 Smokeless Tobacco: Never Comments:03/03/24: Former sm oker, started at age 16, smoked 1PPD until 10 years ago (2013). HAYES: 31. Sex Assigned at Date Recorded Not on file documented as of this encounter Plan of Treatment Not on file documented as of this encounter Visit Diagnoses Not on filedocumented in this encounter Care Teams Cuffing Machine Operator Relationship Specialty Start Date End Date Johnie Gallardo MD PCP - General Internal Medicine 05/17/19 Basilia [place] PA-C [address] [address] Thoracic Surgery 03/03/24 07/05/1996 documented as of this encounter
--- OUTSIDE RECORDS SUMMARY | 2024-07-01 15:35 | XMS_ITS | Encounter Summary ---
Author Organization [facility] [place], Address [address] [place] [address] Phone Care Team Providers Care Rose Grading Supervisor Name Role Phone Johnie Gallardo MD Primary Care Provider [phone] Reason for Visit * Reason Comments Med Refill Encounter Details Date Type Department Care Team (Late st Contact Info) Description 08/29/2020 Refill [facility] [place] [address] [place] [address] Dirk Barroso MD [address] [place] [address] [place] [address] Social History Tobacco Use Types Packs/Day Years [...] on filedocumented in this encounter Care Teams Rose Grading Supervisor Relationship Specialty Start Date End Date Johnie Gallardo MD [facility] [address] [place] [address] [address] [place], [place] PCP - General 03/16/19 documented as of this encounter
--- OUTSIDE RECORDS SUMMARY | 2024-07-01 15:35 | XMS_ITS | Encounter Summary ---
Author Organization [facility] Address [address] [place] [address] Phone Care Team Providers Care Mixing Plant Dumper Name Role Phone Johnie Gallardo MD Primary Care Provider [phone] Encounter Details Date Type Department Care Team (Late st Contact Info) Description 09/11/2022 Documentation Only [facility], [address] [place] [id number] Teo Cronin MD [address] [place] [id number] Social History Tobacco Use Types Packs/Day Years [...] on filedocumented in this encounter Care Teams Mixing Plant Dumper Relationship Specialty Start Date End Date Johnie Gallardo MD [facility] [address] [place], [place] PCP - General 03/16/19 documented as of this encounter
== END 2024-07-01 14:59 | disposition home or self-care (01) ==
PROVIDERS: PCP Internal Medicine; Visit Provider Physician Assistant Surgical
DX: L97.929 Non-pressure chronic ulcer of unspecified part of left lower leg with unspecified severity (principal)
CPT/HCPCS: 99214

== ENCOUNTER → 2024-07-01 14:20 | Outpatient (BNVA) | payer OTHER, SELFPAY | PROVIDERS: PCP Internal Medicine; Visit Provider Surgery Vascular Surgery | DX: L97.329 Non-pressure chronic ulcer of left ankle with unspecified severity (principal) | CPT/HCPCS: 99212 ==